=== PATIENT | female | born 1960 | race Caucasian/White ===

== ENCOUNTER 2024-07-21 14:52 | Outpatient (AMB) | payer BC, SELFPAY ==
--- NOTE | 2024-07-21 15:29 | A.OFFPC_ITS ---
Vital Signs 07/21/24 15:41 Height 5 ft 4 in Weight 211 lb 4 oz BMI 36.3 BP 130/70 Blood Pressure Location Rt brachial Position Sitting Respiration 16 Pulse 73 Pulse Source Pulse Oximeter Temp 98.1 F Temp Source Tympanic Pulse Oximetry (%) 95 Oxygen Delivery Method Room Air Intake Visit Reasons: food service representative visit/med refill Intake Note: establish care Is last menstrual period known: No Post menopausal: Yes Patient : No Allergies No Known Allergies Allergy (Verified 07/21/24 15:29) Medication List - Last Reconciled 07/21/24 by Charles Franco MD amlodipine 5 mg PO DAILY amlodipine 2.5 mg PO DAILY atorvastatin 20 mg PO BEDTIME coQ10 (ubiquinol) (Qunol Mars CoQ10) 100 mg PO BID famotidine 40 mg PO BEDTIME PRN levothyroxine (Synthroid) 112 mcg PO DAILY mecobalamin (vitamin B12) mcg PO omeprazole 40 mg PO BEDTIME potassium chloride ER 10 mEq PO DAILY sertraline (Zoloft) 50 mg PO DAILY Tobacco use date assessed: 07/21/24 Dental Screening Dental Screen Date: 07/21/24 Did you have a dental visit in the last 12 months?: Yes Did you have a dental problem in the last 6 months where you did not have access to dental care?: Yes Was dental information given to patient?: Patient has dentist HPI food service representative visit/med refill HPI Details New Patient? ?? Prior PCP:? [facility] Last office visit/CPE:? CPE 1 yr ago Acute issue(s):? Med refills R foot pain Needs new ref to [facility] ?? PMHx:?HTN, Hypothyroidism, GERD, Hypokalemia, depression, divertculitis, anemia. SurgHx:? Lap Band and removal. GB, L Achilles tendon. Lung wedge resection - Nonmalignant. FHx Colon CA (mom) GI at [place]. FHx:?Mom: Colon CA. DM. Dad: Throat CA. SocHx: Smoked x 10 yrs. Quit 1994. EtOH: 1 gl wine rarely. No drugs Colonoscopy PFSH Social History (Updated 07/21/24 @ 15:38 by Kike Machado MA) Housing: House Patient Tobacco Use Status: Never used Tobacco e-Cigarette/Vaping Use: Never Used service: No Current occupational status: employed Current occupation: residental counselor Cognitive needs: No Hearing needs: No Vision needs: Yes Questionnaire PHQ-9 Over the last 2 weeks, how often have you been bothered by any of the following problems? 1. Little interest or pleasure in doing things: not at all 2. Feeling down, depressed, or hopeless: not at all 3. Trouble falling or staying asleep, or sleeping too much: not at all 4. Feeling tired or having little energy: not at all 5. Poor appetite or overeating: several days 6. Feeling bad about yourself - or that you are a failure or have let yourself or your family down: not at all 7. Trouble concentrating on things, such as reading the newspaper or watching television: not at all 8. Moving or speaking so slowly that other people could have noticed. Or the opposite - being so fidgety or restless that you have been moving around a lot more than usual: not at all 9. Thoughts that you would be better off or of hurting yourself in some way: not at all Total score: 1 Depression Screening Interpretation: Negative Depression Screening Done: Yes 62039 - PHQ-9 Billing: Yes Source: Developed by Drs. Mio Martinez, Koki Rowley, Vincent Duke and colleagues, with an educational lori from [employer]. Thrive Questionnaire Date Thrive assessed: 07/21/24 I am a: Patient What is your living situation today?: I have a steady place to live Within the past 12 months, did the food you bought not last and you didn't have the money to get more?: Never true Within the past 12 months, did you worry whether your food would run out before you got money to buy more?: Never true Do you have trouble paying for medicines?: No Do you have trouble getting transportation to medical appointments?: No Do you have trouble paying your heating and electricity bill?: No Do you have trouble taking care of your child, family member or friend?: No Do you have trouble with day-to-day activities such as bathing, preparing meals, shopping, managing finances, etc.?: No Are you currently unemployed and looking for a job?: No Are you interested in more education?: No Please select the resources that you would like help with: None Currently or been in a relationship where the following occur: No concerns reported THRIVE Score: 0 AUDIT C Alcohol Use Questionnaire (AUDIT-C) 1. How often do you have a drink containing alcohol?: Never 3. How often do you have six or more drinks on one occasion?: Never Total Score: 0 STEFAN-7 AMB Questionnaire STEFAN-7 Date STEFAN - 7 assessed: 07/21/24 Feeling nervous, anxious, or on edge: 0 = Not at all Not being able to stop or control worryin = Not at all Worrying too much about different things: 0 = Not at all Trouble relaxin = Not at all Being so restless that it is hard to sit still: 0 = Not at all Becoming easily annoyed or irritable: 0 = Not at all Feeling afraid as if something awful might happen: 0 = Not at all Total TSEFAN-7 score (0-4 normal; 5-9 mild; 10-14 moderate; 15-21 severe): 0 Source: Developed by Drs. Mio Martinez, Koki Rowley, Vincent Duke and colleagues, with an educational lori from [employer]. STEFAN-7 Assessment Billing STEFAN-7 Assessment Tool: STEFAN-7 Assessment 18909 Review of Systems Const Denies chills, Denies fatigue, Denies fever(s), Denies headache(s) and Denies weakness ENT Denies dizziness and Denies headache(s) Card Denies chest pain, Denies lightheadedness, Denies dyspnea and Denies other (Palpitations) Resp Denies cough, Denies dyspnea, Denies wheezing and Denies other ( shortness of breath) Musc Denies numbness and Denies tingling Neuro Denies dizziness, Denies headache(s), Denies numbness, Denies tingling, Denies paresthesias and Denies weakness Psych Denies anxiety and Denies depression Endo Denies fatigue Aller/Immun Denies wheezing Physical exam (Primary Care) Vital Signs: Last Vital Signs Temp 98.1 F 07/21/24 15:41 Pulse 73 07/21/24 15:41 Resp 16 07/21/24 15:41 BP 130/70 07/21/24 15:41 Pulse Ox 95 07/21/24 15:41 Oxygen Delivery Method Room Air 07/21/24 15:41 BMI result Body Mass Index 36.3 Tobacco/Smoking Status: Tobacco use Status Tobacco use date assessed 07/21/24 07/21/24 15:40 Patient Tobacco Use Status Never used Tobacco 07/21/24 15:40 e-Cigarette/Vaping Use Never Used 07/21/24 15:40 PHQ-9: PHQ-9 Score PHQ-9: Total score 1 07/21/24 16:06 Depression Screening Interpretation: Negative Thrive Assessment: Date of Thrive Assessment Date Thrive assessed 07/21/24 07/21/24 15:40 Currently or been in a relationship where the following occur: No concerns reported Const General: no acute distress and well developed Nutritional Appearance: well nourished Orientation/consciousness: patient oriented x3 HENMT Head: Yes normocephalic and Yes atraumatic Eyes General: appearance normal, both eyes and all related structures Pupils: Equal, round and reactive pupils present EOM: EOMs intact bilaterally Resp Effort & Inspection: normal respiratory effort Auscultation: clear to auscultation bilaterally Cardio Rate: regular rate Rhythm: regular rhythm Heart sounds: S1 normal heart sound present, S2 normal heart sound present, no gallops, no murmurs and no rubs Neuro General: patient oriented x3 and gait normal Cranial nerves: Yes Equal, round and reactive pupils present Psych Affect: normal affect Assessment and Plan Assessment & Plan (1) Hypertension: Code(s): I10 - Essential (primary) hypertension Plan: Blood?pressure?is?controlled.??Goal?is?less?than?140/90 Continue?current?medications (2) GERD (gastroesophageal reflux disease): Code(s): K21.9 - Gastro-esophageal reflux disease without esophagitis Plan: On?omeprazole.??Control Continue?omeprazole Avoid?trigger?foods?and?NSAIDs (3) Hypothyroidism: Code(s): E03.9 - Hypothyroidism, unspecified Plan: Check?thyroid?hormone?levels (4) Right foot pain: Code(s): M79.671 - Pain in right foot Plan: Right?Achilles?and?posterior?heel?pain.??Likely?Achilles?tendinopathy. Referred?to?physical?therapy Encouraged?ice/heat Will?give?her?a?topical?NSAID?as?she?gets?GERD?and?wants?to?avoid?oral?NSAIDs If?not?improving,?would?refer?to?ortho?or?Podiatry (5) Diverticulitis: Code(s): K57.92 - Diverticulitis of intestine, part unspecified, without perforation or abscess without bleeding Plan: Stable (6) Depression: Code(s): F32.A - Depression, unspecified Plan: Fairly?stable?on?sertraline Patient?would?like?a?therapist?and?I?referred?her?to?the?nurse?navigator?t o?help?connect?her?with?one. (7) Screening for colon cancer: Code(s): Z12.11 - Encounter for screening for malignant neoplasm of colon Plan: Patient?had?prior?colonoscopy?at?[facility] Awaiting?records She?did?have?diverticulitis She?is?followed?Q?5?years?due?to?strong?family?history?of?colon?cancer - Mom??from?colon?cancer. (8) Screening for skin cancer: Code(s): Z12.83 - Encounter for screening for malignant neoplasm of skin Plan: Followed?annually?at [facility] dermatology.??Needs?new?referral-referred (9) Laboratory exam ordered as part of routine general medical examination: Code(s): Z00.00 - Encounter for general adult medical examination without abnormal findings Plan: Check?labs Orders: Orders Comprehensive [place]. Panel Fast Today Z00.00 - Encounter for general adult medical examination without abnormal findings Complete Blood Count Auto Diff Today Z00.00 - Encounter for general adult medical examination without abnormal findings Lipid Panel Today Z00.00 - Encounter for general adult medical examination without abnormal findings Free T4 (Free Thyroxine) Today E03.9 - Hypothyroidism, unspecified Thyroid Stimulating Hormone Today E03.9 - Hypothyroidism, unspecified Triiodothyronine T3 Total Today E03.9 - Hypothyroidism, unspecified UA and rflx microscopic Today Z00.00 - Encounter for general adult medical examination without abnormal findings PT Evaluation and Treatment Today M79.671 - Pain in right foot Microalbumin, Random (w Creat) Today I10 - Essential (primary) hypertension Vitamin B12 and Folate Today E53.8 - Deficiency of other specified B group vitamins Referrals Dermatology Referral Z12.83 - Encounter for screening for malignant neoplasm of skin Nurse Navigator Referral F32.A - Depression, unspecified Medications: New diclofenac sodium 1% apply to single elbow, wrist or hand; for hand includes palm/fingers/back of hand 2 grams topical BID 30 days 100 grams 2RF Coding Level of Care Code New Pt Level 3 (31580) Diagnoses Hypertension I10 GERD (gastroesophageal reflux disease) K21.9 Hypothyroidism E03.9 Right foot pain M79.671 Diverticulitis K57.92 Depression F32.A Screening for colon cancer Z12.11 Screening for skin cancer Z12.83 Laboratory exam ordered as part of routine general medical examination Z00.00 Additional Codes STEFAN-7 Assessment Billing - STEFAN-7 Assessment Tool: STEFAN-7 Assessment 95526 ([id number])
[2024-07-21 15:41] VITALS: BP 130/70; PULSE 73; RESP 16; TEMP 36.7; O2SAT 95; BMI 36.3
== END 2024-07-21 16:37 | disposition home or self-care (01) ==
PROVIDERS: Visit Provider Family Medicine
DX: I10 Essential (primary) hypertension (principal); K21.9 Gastro-esophageal reflux disease without esophagitis; E03.9 Hypothyroidism, unspecified; M79.671 Pain in right foot; K57.92 Diverticulitis of intestine, part unspecified, without perforation or abscess without bleeding; F32.A Depression, unspecified; Z12.11 Encounter for screening for malignant neoplasm of colon; Z12.83 Encounter for screening for malignant neoplasm of skin; Z00.00 Encounter for general adult medical examination without abnormal findings

== ENCOUNTER → 2024-07-21 14:52 | Outpatient (BNVA) | payer BC, SELFPAY | PROVIDERS: Visit Provider Family Medicine | DX: I10 Essential (primary) hypertension (principal); K21.9 Gastro-esophageal reflux disease without esophagitis; E03.9 Hypothyroidism, unspecified; M79.671 Pain in right foot; K57.92 Diverticulitis of intestine, part unspecified, without perforation or abscess without bleeding; F32.A Depression, unspecified; M76.61 Achilles tendinitis, right leg; Z79.899 Other long term (current) drug therapy | CPT/HCPCS: 96127 ==

== ENCOUNTER 2024-07-26 09:29 | Outpatient (REF) | payer BC, SELFPAY ==
[2024-07-26 11:29] LABS: Appearance Urine Clear; Color Urine Yellow; Glucose Urine UA Negative (Negative); Leukocyte Esterase Urine Moderate (2+) (Negative); Nitrite Urine Negative (Negative); PH 7.5 (5.0-9.0); UMIC TRIGGER UA YES; Urine Blood Negative (Negative); Urine Ketones Negative (Negative); Urine Protein Negative (Neg-Trace)
[2024-07-26 11:36] LABS: Bacteria Urine 1+ (None Seen); Hyaline Casts Urine 0-2 /LPF (0-2); RBC Urine 0-2 /HPF (0-2)
[2024-07-26 11:48] LABS: MANUAL DIFF FLAG NO
[2024-07-26 12:00] LABS: Basophils Absolute Auto 0.1 X10*3/uL (0.0-0.2); Basophils Percent Auto 0.9 % (0-2); Eosinophils Absolute Auto 0.2 X10*3/uL (0.0-0.4); Hematocrit 41.9 % (37.0-47.0); Hemoglobin 13.6 g/dl (12.0-16.0); Imm Gran Abs Auto 0.01 X10*3/uL (0.00-0.03); Imm Gran Pct Auto 0.2 % (0.0-0.4); Lymphocytes Absolute Auto 1.3 X10*3/uL (1.2-4.9); Lymphocytes Percent Auto 22.2 % (20-40); Mean Corpuscular HGB Conc 32.5 g/dl (31.0-35.0); Mean Corpuscular Hemoglobin 30.5 pg (27.0-33.0); Mean Corpuscular Volume 93.9 fL (80.0-98.0); Mean Platelet Volume 11.2 fL (9.4-12.3); Monocytes Absolute Auto 0.8 X10*3/uL (0.1-1.2); Monocytes Percent Auto 14.1 % (2-11); Neutrophils Absolute Auto 3.3 x10*3/uL (2.0-8.3); Neutrophils Percent Auto 58.6 % (45-73); Platelet Count 275 X10*3/uL (160-400); Red Blood Count 4.46 X10*6/uL (4.20-5.50); Red Cell Distribution Width 13.2 % (11.0-16.0); White Blood Count 5.7 X10*3/uL (4.8-10.8)
[2024-07-26 12:30] LABS: Creatinine Urine 125.36 mg/dL; Microalbum/Creatinine Ratio Ur 3.9 ug/mg cr (<30)
[2024-07-26 12:37] LABS: Alanine Aminotransferase 22 U/L (0-31); Alkaline Phosphatase 105 U/L (39-117); Anion Gap 10 (12-20); Aspartate Amino Transferase 23 U/L (5-31); Bilirubin Total 0.4 mg/dL (0.0-1.0); Blood Urea Nitrogen 13 mg/dL (9-16); Calcium 9.1 mg/dL (8.4-10.2); Carbon Dioxide 26 mmol/L (22-29); Chloride 109 mmol/L (96-108); Cholesterol 161 mg/dL (<200); Estimated Glomerular Filt Rate > 60; Glucose Fasting 144 mg/dL (60-99); HDL Cholesterol 40 mg/dL (>40); LDL Cholesterol Calculated 94 mg/dL (<100); Potassium 4.3 mmol/L (3.3-5.1); Sodium 141 mmol/L (135-145); Total Protein 7.2 g/dL (6.5-8.0); Triglycerides 139 mg/dL (<150)
[2024-07-26 12:44] LABS: Free T4 (Free Thyroxine) 0.91 ng/dL (0.71-1.85); Thyroid Stimulating Hormone 1.53 uIU/mL (0.32-4.0)
[2024-07-26 12:50] LABS: Folate 13.3 ng/mL (> or = 4.0); Vitamin B12 944 pg/mL (200-900)
[2024-07-27 10:03] LABS: Triiodothyronine T3 Total 115 ng/dL (76-181)
== END 2024-07-26 09:30 | disposition home or self-care (01) ==
LOC: HO.WFDLDS 09:29
PROVIDERS: Visit Provider Family Medicine
DX: Z00.00 Encounter for general adult medical examination without abnormal findings (principal); E03.9 Hypothyroidism, unspecified; E53.8 Deficiency of other specified B group vitamins; I10 Essential (primary) hypertension
CPT/HCPCS: 36415; 80053; 80061; 81001; 82043; 82570; 82607; 82746; 84439; 84443; 84480; 85025

== ENCOUNTER 2024-08-30 09:40 | Outpatient (AMB) | payer BC, SELFPAY ==
--- NOTE | 2024-08-30 09:45 | A.OFFPC_ITS ---
Vital Signs 08/30/24 09:49 Height 5 ft 4 in Weight 213 lb BMI 36.6 BP 137/63 Blood Pressure Location Rt brachial Position Sitting Respiration 14 Pulse 73 Pulse Source Pulse Oximeter Temp 99.1 F Temp Source Temporal Artery Scan Pulse Oximetry (%) 96 Oxygen Delivery Method Room Air Intake Visit Reasons: review labs and discuss starting Ozempic Intake Note: f/u labs and discuss ozempic Allergies No Known Allergies Allergy (Verified 08/30/24 09:47) Medication List - Last Reconciled 08/30/24 by Charles Franco MD amlodipine 2.5 mg PO DAILY 90 days amlodipine 5 mg PO DAILY 90 days atorvastatin 20 mg PO BEDTIME 90 days coQ10 (ubiquinol) (Qunol Mars CoQ10) 100 mg PO BID 90 days diclofenac sodium 1% 2 grams topical BID 30 days famotidine 40 mg PO BEDTIME 90 days levothyroxine (Synthroid) 112 mcg PO DAILY 90 days mecobalamin (vitamin B12) 5,000 mcg PO DAILY 90 days omeprazole 40 mg PO BEDTIME 90 days potassium chloride ER 10 mEq PO DAILY 90 days sertraline (Zoloft) 50 mg PO DAILY 90 days Tobacco use date assessed: 07/21/24 Dental Screening Dental Screen Date: 07/21/24 HPI review labs and discuss starting Ozempic HPI Details 64 y/o female presents to review labs. Labs drawn 07/26/24. Reviewed labs with pt. Elevated fasting glucose of 144. Notes hx of gestational diabetes. Triglycerides 139. TC 161. LDL 94. HDL 40. Vitamin B12 944. Reports ongoing trouble with her R achilles tendonitis. A1c today 08/30/24 is 6.5%> Blood pressure today 137/63, 73p. She is on amlodipine 5mg daily. [facility] Social History (Updated 07/21/24 @ 15:38 by Kike Machado [facility] Housing: House Patient Tobacco Use Status: Never used Tobacco e-Cigarette/Vaping Use: Never Used service: No Current occupational status: employed Current occupation: residental counselor Cognitive needs: No Hearing needs: No Vision needs: Yes Questionnaire PHQ-9 Over the last 2 weeks, how often have you been bothered by any of the following problems? 1. Little interest or pleasure in doing things: not at all 2. Feeling down, depressed, or hopeless: not at all 3. Trouble falling or staying asleep, or sleeping too much: not at all 4. Feeling tired or having little energy: not at all 5. Poor appetite or overeating: not at all 6. Feeling bad about yourself - or that you are a failure or have let yourself or your family down: not at all 7. Trouble concentrating on things, such as reading the newspaper or watching television: not at all 8. Moving or speaking so slowly that other people could have noticed. Or the opposite - being so fidgety or restless that you have been moving around a lot more than usual: not at all 9. Thoughts that you would be better off or of hurting yourself in some way: not at all Total score: 0 Source: Developed by Drs. Mio Martinez, Koki Rowley, Vincent Duke and colleagues, with an educational lori from [employer]. Thrive Questionnaire Date Thrive assessed: 08/29/24 I am a: Patient What is your living situation today?: I have a steady place to live Within the past 12 months, did the food you bought not last and you didn't have the money to get more?: Never true Within the past 12 months, did you worry whether your food would run out before you got money to buy more?: Never true Do you have trouble paying for medicines?: No Do you have trouble getting transportation to medical appointments?: No Do you have trouble paying your heating and electricity bill?: No Do you have trouble taking care of your child, family member or friend?: No Do you have trouble with day-to-day activities such as bathing, preparing meals, shopping, managing finances, etc.?: No Are you currently unemployed and looking for a job?: No Are you interested in more education?: No Please select the resources that you would like help with: None Currently or been in a relationship where the following occur: No concerns reported THRIVE Score: 0 AUDIT C Alcohol Use Questionnaire (AUDIT-C) 1. How often do you have a drink containing alcohol?: 2-4 times a month 2. How many drinks containing alcohol do you have on a typical day when you are drinking?: 1 or 2 3. How often do you have six or more drinks on one occasion?: Never Total Score: 2 STEFAN-7 AMB Questionnaire STEFAN-7 Date STEFAN - 7 assessed: 07/21/24 Feeling nervous, anxious, or on edge: 0 = Not at all Not being able to stop or control worryin = Not at all Worrying too much about different things: 0 = Not at all Trouble relaxin = Not at all Being so restless that it is hard to sit still: 0 = Not at all Becoming easily annoyed or irritable: 0 = Not at all Feeling afraid as if something awful might happen: 0 = Not at all Total STEFAN-7 score (0-4 normal; 5-9 mild; 10-14 moderate; 15-21 severe): 0 Source: Developed by Drs. Mio Martinez, Koki Rowley, Vincent Duek and colleagues, with an educational lori from [employer]. Review of Systems Const Denies chills, Denies fatigue, Denies fever(s), Denies headache(s) and Denies weakness ENT Denies dizziness and Denies headache(s) Card Denies chest pain, Denies lightheadedness, Denies dyspnea and Denies other (Palpitations) Resp Denies cough, Denies dyspnea, Denies wheezing and Denies other ( shortness of breath) Musc Denies numbness and Denies tingling Neuro Denies dizziness, Denies headache(s), Denies numbness, Denies tingling, Denies paresthesias and Denies weakness Psych Denies anxiety and Denies depression Endo Denies fatigue Aller/Immun Denies wheezing Physical exam (Primary Care) Vital Signs: Last Vital Signs Temp 99.1 F 08/30/24 09:49 Pulse 73 08/30/24 09:49 Resp 14 08/30/24 09:49 BP 137/63 08/30/24 09:49 Pulse Ox 96 08/30/24 09:49 Oxygen Delivery Method Room Air 08/30/24 09:49 BMI result Body Mass Index 36.6 Tobacco/Smoking Status: Tobacco use Status Tobacco use date assessed 07/21/24 08/30/24 09:50 Patient Tobacco Use Status Never used Tobacco 08/30/24 09:50 e-Cigarette/Vaping Use Never Used 08/30/24 09:50 PHQ-9: PHQ-9 Score PHQ-9: Total score 0 08/30/24 10:02 Thrive Assessment: Date of Thrive Assessment Date Thrive assessed 08/29/24 08/30/24 09:50 Currently or been in a relationship where the following occur: No concerns reported Const General: no acute distress and well developed Nutritional Appearance: well nourished Orientation/consciousness: patient oriented x3 [facility] Head: Yes normocephalic and Yes atraumatic Eyes General: appearance normal, both eyes and all related structures Pupils: Equal, round and reactive pupils present EOM: EOMs intact bilaterally Resp Effort & Inspection: normal respiratory effort Auscultation: clear to auscultation bilaterally Cardio Rate: regular rate Rhythm: regular rhythm Heart sounds: S1 normal heart sound present, S2 normal heart sound present, no gallops, no murmurs and no rubs GI Inspection: Yes obesity Neuro General: patient oriented x3 and gait normal Cranial nerves: Yes Equal, round and reactive pupils present Psych Affect: normal affect Coding Level of Care Code Est Pt Level 4 (39400) Diagnoses Right foot pain M79.671 Elevated fasting glucose R73.01 Hypertension I10 Diabetes E11.9 History of gestational diabetes Z86.32 Assessment & Plan Assessment & Plan (1) Right foot pain: Code(s): M79.671 - Pain in right foot Category: Medical Plan: Ongoing?right?foot?pain?and?likely?plantar?fasciitis?and?Achilles?tendinitis Does?not?tolerate?NSAIDs?well?due?to?acid?reflux/heartburn Continue?topicals?and?stretching.??Ice/heat Will?refer?her?to?Ortho (2) Elevated fasting glucose: Code(s): R73.01 - Impaired fasting glucose Category: Medical Plan: Fasting?blood?sugar?is?high A1c: ?6.5%;?early?diabetes History?of?gestational?diabetes?and?family?history?of?diabetes. See?below (3) Hypertension: Code(s): I10 - Essential (primary) hypertension Category: Medical Plan: Blood?pressure?is?controlled.??Goal?is?less?than?140/90 Continue?current?medication?regimen Encouraged?weight?control?and?watch?salt/sodium (4) Diabetes: Code(s): E11.9 - Type 2 diabetes mellitus without complications Category: Medical Plan: A1c?6.5%;?early?diabetes Patient?also?obese She?wants?to?start?Ozempic Risks/benefits?discussed?and?she?will?begin?this?medication Also?encouraged?diet?low?in?sugars?and?starches?and?weight?control (5) History of gestational diabetes: Code(s): Z86.32 - Personal history of gestational diabetes Category: Medical Plan: As?above Medications: New semaglutide (Ozempic) for 4 weeks 0.25 mg (0.368 mL) subcut QWEEK 28 days 3 mL 3RF E11.9 - Type 2 diabetes mellitus without complications
[2024-08-30 09:49] VITALS: BP 137/63; PULSE 73; RESP 14; TEMP 37.3; O2SAT 96; BMI 36.6
== END 2024-08-30 12:15 | disposition home or self-care (01) ==
LOC: HO.HMCFM 09:41
PROVIDERS: PCP Family Medicine; Visit Provider Family Medicine
DX: M79.671 Pain in right foot (principal); E11.9 Type 2 diabetes mellitus without complications; I10 Essential (primary) hypertension; Z86.32 Personal history of gestational diabetes

== ENCOUNTER → 2024-08-30 09:40 | Outpatient (BNVA) | payer BC, SELFPAY | PROVIDERS: Visit Provider Family Medicine ==

== ENCOUNTER → 2024-10-14 15:39 | Outpatient (BNVA) | payer BC, SELFPAY | PROVIDERS: PCP Family Medicine; Visit Provider Family Medicine ==

== ENCOUNTER → 2024-10-14 15:39 | Outpatient (AMB) | payer BC, SELFPAY ==
--- NOTE | 2024-10-14 16:27 | A.OFFPC_ITS ---
Vital Signs 10/14/24 16:30 Height 5 ft 4 in Weight 212 lb 4 oz BMI 36.4 BP 127/70 Blood Pressure Location Lt brachial Position Sitting Respiration 16 Pulse 74 Pulse Source Pulse Oximeter Temp 96.3 F L Temp Source Temporal Artery Scan Pulse Oximetry (%) 97 Oxygen Delivery Method Room Air Intake Visit Reasons: Annual Physical, flu on bloodwork Intake Note: annual physical Allergies No Known Allergies Allergy (Verified 10/14/24 16:29) Tobacco use date assessed: 07/21/24 Dental Screening Dental Screen Date: 07/21/24 HPI Annual Physical, flu on bloodwork HPI Details 64 y/o female presents for a CPE with f/ u labs and health maintenance. Labs drawn 07/26/24. Reviewed labs with pt. Elevated fasting glucose of 144. Triglycerides 139. TC 161. LDL 94. HDL low at 40. Has not had a bone density test. HPI Comments History of Present Illness Details Documentation assistance for Charles Franco MD, was provided by Jose Ramon Corado, Electromedical Equipment Technician on 10/14/2024 at 5:06 PM EST. I, Dr. Franco, have read, observed, and verified documentation. [facility] Social History (Updated 07/21/24 @ 15:38 by Kike Machado [facility] Housing: House Patient Tobacco Use Status: Never used Tobacco e-Cigarette/Vaping Use: Never Used service: No Current occupational status: employed Current occupation: residental counselor Cognitive needs: No Hearing needs: No Vision needs: Yes Questionnaire Thrive Questionnaire Date Thrive assessed: 08/29/24 I am a: Patient What is your living situation today?: I have a steady place to live Within the past 12 months, did the food you bought not last and you didn't have the money to get more?: Never true Within the past 12 months, did you worry whether your food would run out before you got money to buy more?: Never true Do you have trouble paying for medicines?: No Do you have trouble getting transportation to medical appointments?: No Do you have trouble paying your heating and electricity bill?: No Do you have trouble taking care of your child, family member or friend?: No Do you have trouble with day-to-day activities such as bathing, preparing meals, shopping, managing finances, etc.?: No Are you currently unemployed and looking for a job?: No Are you interested in more education?: No Please select the resources that you would like help with: None Currently or been in a relationship where the following occur: No concerns reported THRIVE Score: 0 STEFAN-7 AMB Questionnaire STEFAN-7 Date STEFAN - 7 assessed: 07/21/24 Source: Developed by Drs. Mio Martinez, Koki Rowley, Vincent Duke and colleagues, with an educational lori from [employer]. Review of Systems Const Denies chills, Denies fatigue, Denies fever(s), Denies headache(s) and Denies weakness Eyes Denies change in vision ENT Denies dizziness, Denies headache(s), Denies hearing loss, Denies nasal congestion, Denies sinus pain, Denies sinus pressure and Denies sore throat Card Denies chest pain, Denies lightheadedness, Denies dyspnea and Denies other (palpitations) Resp Denies cough, Denies dyspnea and Denies wheezing GI Denies abdominal pain, Denies melena, Denies hematochezia, Denies change in bowel habits, Denies dyspepsia and Denies nausea Denies hematuria and Denies dysuria Musc Denies abnormal gait, Denies myalgias, Denies arthralgias, Denies numbness and Denies tingling Skin/Breast Denies rash, Denies unusual bruising and Denies wounds Neuro Denies abnormal gait, Denies dizziness, Denies headache(s), Denies memory loss, Denies numbness, Denies Sensory deficit (Neuro), Denies tingling and Denies weakness Psych Denies anxiety, Denies depression and Denies memory loss Endo Denies cold intolerance, Denies fatigue, Denies heat intolerance, Denies polydipsia and Denies polyuria Chalino/Lymph Denies easy bleeding and Denies easy bruising Aller/Immun Denies wheezing Physical exam (Primary Care) Vital Signs: Last Vital Signs Temp 96.3 F L 10/14/24 16:30 Pulse 74 10/14/24 16:30 Resp 16 10/14/24 16:30 BP 127/70 10/14/24 16:30 Pulse Ox 97 10/14/24 16:30 Oxygen Delivery Method Room Air 10/14/24 16:30 BMI result Body Mass Index 36.4 Tobacco/Smoking Status: Tobacco use Status Tobacco use date assessed 07/21/24 10/14/24 16:27 Patient Tobacco Use Status Never used Tobacco 10/14/24 16:27 e-Cigarette/Vaping Use Never Used 10/14/24 16:27 Thrive Assessment: Date of Thrive Assessment Date Thrive assessed 08/29/24 10/14/24 16:27 Currently or been in a relationship where the following occur: No concerns reported Const General: no acute distress, well developed, alert and awake Nutritional Appearance: well nourished Orientation/consciousness: patient oriented x3 HENMT Head: Yes normocephalic and Yes atraumatic Ears: hearing grossly normal bilaterally and TM's normal bilaterally General nose exam: Normal external nose present and Normal nares present Mouth: Normal oral and palatal mucosa present and moist mucous membranes Teeth and gingiva: dentition normal Throat: Yes posterior oropharynx normal Eyes General: appearance normal, both eyes and all related structures Pupils: Equal, round and reactive pupils present and Pupil accommodation reflex normal EOM: EOMs intact bilaterally Neck Neck: Yes normal visual inspection, Yes no lymphadenopathy and Yes trachea midline Thyroid: Thyroid normal Carotids: no bruits Lymphatic: no lymphadenopathy noted Chest Chest palpation & inspection: normal inspection of the chest Resp Effort & Inspection: normal respiratory effort Auscultation: clear to auscultation bilaterally Cardio Rate: regular rate Rhythm: regular rhythm Heart sounds: S1 normal heart sound present, S2 normal heart sound present, no gallops, no murmurs and no rubs Bruits: no abdominal aortic bruits and no carotid bruits GI Palpation (GI): No Abdominal aortic bruit present, Soft to palpation, nontender, No hepatosplenomegaly present and No Rebound tenderness present Auscultation: normal bowel sounds General: Yes no CVA tenderness Back/Spine/Pelvis Back: no CVA tenderness Cervical Spine: cervical ROM normal and No Cervical spine tenderness Thoracic/Lumbar Spine: thoraco-lumbar ROM normal, No pain with thoraco-lumbar ROM, No thoracic spinal tenderness and No lumbar spinal tenderness Skin Lesions: no lesions Rashes: no rashes Trauma: no lacerations or abrasions Wounds: no wounds Nails: normal Neuro General: patient oriented x3 Cranial nerves: Yes Equal, round and reactive pupils present Cognition (Neuro): normal cognition Gait exam (Neuro): Normal gait present Motor exam (neuro): 5/5 motor strength present throughout Sensory Exam: No Sensory deficit (Neuro) Deep tendon reflexes (DTR's): Right patellar reflex intensity grade: 2+ and Left patellar reflex intensity grade: 2+ Extrem General: Yes normal to inspection and No edema Psych Appearance: grossly normal Affect: normal affect Attitude: cooperative Thought process: Normal thought process present Coding Level of Care Code Est Pt Level 3 (82167) Est Pt Prev Care 40-64y(18656) Diagnoses Adult general medical exam Z00.00 Diabetes E11.9 GERD (gastroesophageal reflux disease) K21.9 Screening for osteoporosis Z13.820 Screening for cervical cancer Z12.4 Screening for colon cancer Z12.11 Breast cancer screening by mammogram Z12.31 Assessment & Plan Assessment & Plan (1) Adult general medical exam: Code(s): Z00.00 - Encounter for general adult medical examination without abnormal findings Category: Medical Plan: 64-year-old?female?presents?for?complete?physical?exam (2) Diabetes: Code(s): E11.9 - Type 2 diabetes mellitus without complications Category: Medical Plan: We?have?been?working?on?getting?Mounjaro?prescribed?after?Ozempic?was?declined. Awaiting?response?from?her insurer (3) GERD (gastroesophageal reflux disease): Code(s): K21.9 - Gastro-esophageal reflux disease without esophagitis Category: Medical Plan: She?is?taking?omeprazole?and?famotidine. Patient?notes?that?she?was?told?she?has?a?hiatal?hernia Continue?current?medications Follow-up?with?GI?as?recommended (4) Screening for osteoporosis: Code(s): Z13.820 - Encounter for screening for osteoporosis Category: Medical Plan: She?will?be?due?for?screening?for?osteoporosis?at?age?66 Did?discuss?that?her?PPI?does?increase?her?risk?of?osteoporosis. (5) Screening for cervical cancer: Code(s): Z12.4 - Encounter for screening for malignant neoplasm of cervix Category: Medical Plan: Followed?by?straw hat presser?and?had?Pap?smear?last?year Up-to-date.??Follow-up?with?straw hat presser?as?recommended (6) Screening for colon cancer: Code(s): Z12.11 - Encounter for screening for malignant neoplasm of colon Category: Medical Plan: Has?been?followed?by?GI?at?[place] She?is?checked?Q?5?years?due?to?history?of?polyps?and?family?history?of?colon?c ancer She?is?up-to-date (7) Breast cancer screening by mammogram: Code(s): Z12.31 - Encounter for screening mammogram for malignant neoplasm of breast Category: Medical Plan: Due?for?mammogram-ordered Orders: Orders AMB Hemoglobin A1c Today E11.9 - Type 2 diabetes mellitus without complications MM tomosynthesis screening BI Today Z12.31 - Encounter for screening mammogram for malignant neoplasm of breast Medications: Refilled tirzepatide (Mounjaro) for 4 weeks 2.5 mg (0.5 mL) subcut QWEEK 28 days 2 mL 3RF E11.9 - Type 2 diabetes mellitus without complications
[2024-10-14 16:30] VITALS: BP 127/70; PULSE 74; RESP 16; TEMP 35.7; O2SAT 97; BMI 36.4
== END ==
PROVIDERS: PCP Family Medicine; Visit Provider Family Medicine
DX: Z00.00 Encounter for general adult medical examination without abnormal findings (principal); E11.9 Type 2 diabetes mellitus without complications; K21.9 Gastro-esophageal reflux disease without esophagitis; Z13.820 Encounter for screening for osteoporosis; Z12.11 Encounter for screening for malignant neoplasm of colon; Z12.31 Encounter for screening mammogram for malignant neoplasm of breast